=== PATIENT | female | born 1965 | race Asian ===

== ENCOUNTER 2016-10-13 21:34 | Emergency (ER) | payer OTHER ==
[~2016-10-13] VITALS: Ht 160 cm; Wt 69.8 kg
[2016-10-13 21:42] VITALS: TEMP 36.7; Ht 160 cm; Wt 69.8 kg
[2016-10-13] MEDS ORDERED: ACETAMINOPHEN 500 MG TAB PO STA (22:17)
--- NOTE | 2016-10-13 22:41 | DIAGNOSTIC IMAGING REPORT ---
CT HEAD WITHOUT CONTRAST (CT) CLINICAL HISTORY: Head trauma with loss of consciousness. COMPARISON STUDY: No previous studies for comparison. TECHNIQUE: Axial CT of the brain is performed from the vertex to the skull base. IV contrast was not administered for this examination. A dose lowering technique was utilized adhering to the principles of ALARA. CT DOSE: 687.98 mGy.cm FINDINGS: No intra or extra-axial mass lesions are visualized. There is no CT evidence of acute cortical infarction. There is no evidence of midline shift. There is no acute hemorrhage. No calvarial fractures are visualized. There is a posterior parietal scalp hematoma. There is no evidence of pathologic ventricular dilatation. There is no evidence of acute sinusitis IMPRESSION: Posterior parietal scalp hematoma. No acute intracranial findings. Electronically signed by: James Moura M.D. 10/13/2016 10:40 PM Dictated Date/Time: 10/13/2016 10:38 PM
[2016-10-13 22:46] VITALS: BP 91/49; PULSE 71; O2SAT 97
--- NOTE | 2016-10-14 00:07 | EMERGENCY ROOM VISIT NOTE ---
History Report prepared by Tresa: Celi Damico Under the Supervision of: Dr. Albino Keller M.D. First contact with patient: 22:01 Chief Complaint: FALL Stated Complaint: HIT HEAD ON ICE History of Present Illness The patient is a 51 year old female who presents to the Emergency Room with complaints of a sudden fall that occurred around 2039. She currently rats her discomfort as a 7/10 in severity. The patient's reports that the patient was taking a picture for other skaters and when she went to hand them their phone, she stepped onto the ice and slipped and fell, hitting her head. The patient's states that the patient had a positive loss of consciousness for a short period of time, but notes that the patient began responding a few seconds after the fall. He states that the patient has complained of memory loss, noting that she did not remember what had happened. The patient's denies the patient having any bleeding. He denies the patient having any active medical problems. The patient is complaining of a headache at this time. Pt denies visual changes, neck pain, chest pain, breathing difficulties, nausea, vomiting, abdominal pain, back pain, extremity pain, numbness, weakness, open wounds, active bleeding, or other complaints. Source of History: patient, spouse/significant other () Onset: 2039 Position: other (global) Symptom Intensity: 7/10 Quality: other (fall) Timing: other (sudden) Associated Symptoms: + headache Review of Systems See HPI for pertinent positives and negatives. A total of ten systems were reviewed and were otherwise negative. Past Medical & Surgical Medical Problems: (1) No active medical problems Family History Patient reports no known family medical history. Social History Smoking Status: Never Smoker Smokeless Tobacco Use: No Alcohol Use: occasionally Marital Status: Housing Status: lives with family Current/Historical Medications No Active Prescriptions or Reported Meds Allergies Coded Allergies: No Known Allergies (Unverified , 10/13/16) Physical Exam Vital Signs Date Time Temp Pulse Resp B/P (MAP) Pulse Ox O2 Delivery O2 Flow Rate FiO2 10/13/16 22:46 71 16 91/49 97 Room Air 10/13/16 21:42 36.7 83 18 126/80 99 Room Air Physical Exam GENERAL: Awake, alert, uncomfortable appearing, mild distress HEAD: Contusion, hematoma to the superior occiput. No schumacher sign. No raccoon eyes. EYES: Normal conjunctiva. PERRL. EARS: External ears normal. Right TM normal. Left TM normal. NOSE: Atraumatic OROPHARYNX: Lips, tongue, and mucosa unremarkable. No erythema or exudate. NECK: Full range of motion. No tracheal deviation or JVD. No posterior midline tenderness. No step offs noted. RESPIRATORY: CTA bilaterally CARDIAC: Regular rate, normal rhythm. ABDOMEN: Inspection reveals no abnormalities. Soft, non distended. No tenderness to palpation. No hernias. BACK: No midline step offs or tenderness to palpation. Unremarkable. PELVIS: Stable to rock. SKIN: Normal. LYMPH: No adenopathy. MUSCULOSKELETAL: Upper and lower extremities are atraumatic. NEURO: GCS 15. Normal sensorium. No sensory or motor deficits noted. Medical Decision & Procedures ER Provider Diagnostic Interpretation: CT: Radiology results as stated below per my review and radiologist interpretation CT HEAD WITHOUT CONTRAST (CT) CLINICAL HISTORY: Head trauma with loss of consciousness. COMPARISON STUDY: No previous studies for comparison. TECHNIQUE: Axial CT of the brain is performed from the vertex to the skull base. IV contrast was not administered for this examination. A dose lowering technique was utilized adhering to the principles of ALARA. CT DOSE: 687.98 mGy.cm FINDINGS: No intra or extra-axial mass lesions are visualized. There is no CT evidence of acute cortical infarction. There is no evidence of midline shift. There is no acute hemorrhage. No calvarial fractures are visualized. There is a posterior parietal scalp hematoma. There is no evidence of pathologic ventricular dilatation. There is no evidence of acute sinusitis IMPRESSION: Posterior parietal scalp hematoma. No acute intracranial findings. Electronically signed by: James Moura M.D. 10/13/2016 10:40 PM Dictated Date/Time: 10/13/2016 10:38 PM Medications Administered Medications (Trade) Dose Ordered Sig/Henry Route Start Time Stop Time Status Last Admin Dose Admin Acetaminophen (Tylenol Tab) 1,000 mg NOW STAT PO 10/13/16 22:17 10/13/16 22:18 DC 10/13/16 22:46 1,000 MG ED Course 2211: The patient was evaluated in room C11B. A complete history and physical exam was performed. 2217: Ordered Tylenol Tab 1000 mg PO. 2304: I reevaluated the patient and she is feeling better. I discussed the exam findings with her and her family and I discussed the treatment plan. She verbalized complete understanding and agreement. The patient is ready to go home. Medical Decision Prior records/ancillary studies reviewed. Triage Nursing notes reviewed and agree them. Additional history obtained from family. The patient's history was concerning for traumatic head injury Differential diagnosis: Etiologies such as contusion, fracture, subdural hematoma, concussion, epidural hematoma, intraparenchymal hemorrhage, as well as other traumatic pathologies were entertained. Physical examination findings: As above. ER treatment provided: P.o. Tylenol Icepack On reassessment the patient felt better. Diagnostics interpreted by me: Imaging studies: CT as above It appears the patient has a concussion. By the evaluation outlined above emergent etiologies such as fracture, subdural hematoma, epidural hematoma, intraparenchymal hemorrhage, as well as others were deemed relatively unlikely. The patient and family were informed about the findings as listed above. All questions were answered and they were pleased with the treatment. Return instructions were outlined and the patient was discharged in stable condition. Referral: The patient was referred back to her primary care physician for follow-up for a recheck of the current condition. Head Trauma GCS Score: 14 Medication Reconcilliation Current Medication List: was personally reviewed by me Blood Pressure Screening Patient's blood pressure: Normal blood pressure Blood pressure disposition: Did not require urgent referral Impression Primary Impression: Closed head injury Additional Impression: Concussion Scribe Attestation The scribe's documentation has been prepared under my direction and personally reviewed by me in its entirety. I confirm that the note above accurately reflects all work, treatment, procedures, and medical decision making performed by me. Departure Information Dispostion Home / Self-Care Prescriptions No Active Prescriptions or Reported Meds Referrals No Doctor, Assigned (PCP) Forms HOME CARE DOCUMENTATION FORM, IMPORTANT VISIT INFORMATION Patient Instructions My [facility] Additional Instructions CONCUSSION DISCHARGE INSTRUCTIONS: What is a concussion? A concussion is a disturbance in the function of the brain caused by a direct or indirect force to the head. It results in a variety of symptoms like: headache, balance problems, nausea, vomiting, vision problems, hearing problems/ringing, drowsiness, irritability, and/or difficulty concentrating or remembering. A concussion may, or may not involve memory problems or loss of consciousness. Concussion instructions: Stop and stay away from ALL physical activity until you are symptom free from: Headaches Balance problems Feeling "dinged" Poor concentration Drowsy Fatigued Rest and avoid strenuous activities for the next few days. Get 8-10 hours of sleep per night. Limit activities that involve significant concentration and attention during this time to speed your recovery. This includes studying, attending school, playing video games, and heavy reading. Your brain needs to rest. Eat right and eat often. Now is the time to feed your brain. Well balanced diets that avoid high sugar foods, sodas, caffeine, etc. are better for your brain. NO ALCOHOL OR DRUGS! Avoid stimulants like caffeine, red bull, mountain dew, "energy" drinks, etc. Tylenol(acetaminophen) may be used for headaches. Use 1000mg every six hours as needed. Avoid using more than 4000mg in a 24 hour period. Avoid anti-inflammatories such as aspirin, ibuprofen, Alleve, naprosyn, Motrin, or Advil as these can interfere with blood clotting and lead to bleeding within the brain after a traumatic injury. FOLLOW UP INSTRUCTIONS: You should have a follow up with your family doctor when you return home. POST CONCUSSIVE SYNDROME: Occasionally patients can experience a postconcussive syndrome which includes prolonged headaches and memory difficulties. This may occur over the next several days, weeks or rarely, even months. It is important to have a primary care physician follow-up in order to help if the situation develops. Problems could arise over the next 24 to 48 hours. You should not be left alone and MUST go to the hospital immediately if you: -Have a headache that suddenly gets worse. -Are very drowsy or cannot be woken up from sleep. -Can't recognize people or places. -Have repeated vomiting. -Behave unusually, seemed confused, or start acting irritable. -Have a seizure (arms and legs start jerking uncontrollably). -Have weak or numb arms or legs. -Are unsteady on your feet -Experience slurred speech or difficulty speaking. Problem Qualifiers
== END 2016-10-13 23:10 | disposition home or self-care (01) ==
LOC: C.EDB 21:39 → C.EDC 23:10
DX: S09.90XA Unspecified injury of head, initial encounter (principal); S06.0X0A Concussion without loss of consciousness, initial encounter; W19.XXXA Unspecified fall, initial encounter